=== PATIENT | male | born 1995 | race Caucasian/White ===

== ENCOUNTER 2022-07-08 15:31 | Inpatient (IN) | payer OTHER ==
[~2022-07-08 15:31] MED LIST: Iopamidol-370 76% 500 ML MDV (1 ML CHARGE) ONE
[2022-07-08 16:38] LABS: #Lymphocytes 1.6 thou/uL (1.20-3.40); #Monocytes 0.6 thou/uL (0.11-0.59); #Neutrophils 4.6 thou/uL (1.40-6.50); %Basophils 0.3 % (0.0-1.0); %Eosinophils 0.3 % (0.0-10.0); %Lymphocytes 23.5 % (21.0-51.0); %Monocytes 8.4 % (0.0-10.0); %Neutrophils 67.5 % (42.0-75.0); Hemoglobin 7.4 g/dL (14.0-18.0); Mean Corpuscular HGB CONC 29.3 g/dL (32.0-36.0); Mean Corpuscular Hemoglobin 17.4 pg (27.0-31.0); Mean Corpuscular Volume 59.3 fl (78.0-98.0); Mean Platelet Volume 6.9 fL (7.4-10.4); Platelet Count 363 10x3/uL (130-400); RBC Distribution Width 18.7 % (11.5-14.5); Red Blood Cell (RBC) Count 4.26 mill/uL (4.70-6.10); White Blood Cell (WBC) Count 6.8 10x3/uL (4.8-10.8)
[2022-07-08 16:51] LABS: Anisocytosis SLIGHT = 6-15 cells (100X) (0-5/hpf); Hypochromia SLIGHT = 6-15 cells (100X) (0-5/hpf); MDiff Complete? YES; Microcytosis SLIGHT = 6-15 cells (100X) (0-5/hpf); Ovalocytes SLIGHT = 2-5 cells (100X) (0-1/hpf); Platelet Morphology Comment Appears Adequate; Polychromasia SLIGHT = 2-3 cells (100X) (0-2/hpf); Reflex for Review?? YES; Small Platelets SLIGHT
[2022-07-08 17:08] LABS: ALT (SGPT) 23 U/L (8-55); AST (SGOT) 16 U/L (5-34); Albumin 4.4 g/dL (3.5-5.0); Alkaline Phosphatase 116 U/L (40-110); Anion Gap 13 mmol/L (10-20); BUN (Urea Nitrogen) 9 mg/dL (8.9-20.6); Bilirubin, Total 0.3 mg/dL (0.2-1.2); Calc. Creatinine Clearance 0 mL/min (70-130); Calcium 9.4 mg/dL (7.8-10.44); Carbon Dioxide 23 mmol/L (22-29); Chloride 105 mmol/L (98-107); Estimated GFR 96; Globulin 3.2 g/dL (2.4-3.5); Glucose 98 mg/dL (70-105); Potassium 3.7 mmol/L (3.5-5.1); Protein, Total 7.6 g/dL (6.0-8.3); Sodium 137 mmol/L (136-145)
[2022-07-08] MEDS ORDERED: Pantoprazole 40 MG VIAL ONE (17:44)
[2022-07-08] MEDS ORDERED: Ondansetron ODT 4 MG TAB PO PRN (18:26)
[2022-07-08] MEDS ORDERED: Ondansetron PF 4 MG/2 ML Vial IVP PRN (18:26)
[2022-07-08] MEDS ORDERED: Acetaminophen 325 MG TAB PO PRN (18:26)
[2022-07-08] MEDS ORDERED: Lorazepam 2 MG/ML VIAL IM PRN (19:16)
[2022-07-08] MEDS ORDERED: Lorazepam 1 MG TAB PO PRN (19:16)
[2022-07-08] MEDS ORDERED: Multivit, Therapeutic 1 TAB PO SCH (19:30)
[2022-07-08] MEDS ORDERED: Folic Acid 1 MG TAB PO SCH (19:30)
[2022-07-08] MEDS ORDERED: Electrolyte Replacement Protocol FS PRN (19:30)
[2022-07-08] MEDS ORDERED: Electrolyte Replacement Protocol 1 EACH FS SCH (19:30)
[2022-07-08] MEDS: Thiamine HCl 200 MG/2 ML VIAL SLOW IVP SCH (20:31)
[2022-07-08] MEDS: Folic Acid 1 MG TAB PO SCH (20:31)
[2022-07-08] MEDS: Lactated Ringer's 1,000 ML IV SCH (20:38)
[2022-07-08] MEDS: Prazosin HCl 1 MG CAP PO SCH (20:47)
[2022-07-08] MEDS ORDERED: ILOPERIDONE 6 MG PO SCH (21:00)
[2022-07-08] MEDS ORDERED: traZODone HCl 150 MG TAB PO SCH (21:00)
[2022-07-08 22:03] LABS: Magnesium 2.2 mg/dL (1.6-2.6); Phosphorus 3.5 mg/dL (2.3-4.7)
[2022-07-08 23:00] LABS: Amphetamine Not Detected (NotDetected); Barbiturates Screen Not Detected (NotDetected); Benzodiazepine Screen Detected (NotDetected); Cocaine Metabolite Screen Not Detected (NotDetected); Methadone Not Detected (NotDetected); Methamphetamine Not Detected (NotDetected); Opiate Screen Not Detected (NotDetected); Oxycodone Screen Not Detected (NotDetected); Phencyclidine (PCP) Not Detected (NotDetected); THC/Cannabinoid Screen Not Detected (NotDetected); Tricyclic Screen Not Detected (NotDetected)
[2022-07-08 23:09] VITALS: BMI 28.1
[2022-07-08] MEDS: Temazepam 15 MG CAP PO PRN (23:12)
[2022-07-09] MEDS: Lactated Ringer's 1,000 ML IV SCH ×3 (01:40→16:57)
[2022-07-09 06:06] LABS: HBSAg Index 0.24 S/CO (0-0.99); Hep B Surf Ag Non-Reactive S/CO (NonReactive); Hep C IgG Ab Non-Reactive S/CO (NonReactive); Hep C Index 0.11 S/CO (0-0.79)
[2022-07-09 06:07] LABS: Hep A IgM AB Non-Reactive S/CO (NonReactive); Hep A IgM S/CO 0.18 S/CO (0-0.79)
[2022-07-09 06:09] LABS: Hepatitis B Core IgM Abs Non-Reactive S/CO (NonReactive)
[2022-07-09 06:10] LABS: HBCM Index 0.08 S/CO (0-0.79); HIV (1/2) Antibody/Antigen Non-Reactive (NonReactive)
[2022-07-09 06:11] LABS: HIV 1/2 INDEX 0.12 S/CO (<1.00)
[2022-07-09 07:39] LABS: #Eosinphils 0.1 thou/uL (0.0-0.7); #Lymphocytes 1.5 thou/uL (1.20-3.40); #Monocytes 0.5 thou/uL (0.11-0.59); %Basophils 0.1 % (0.0-1.0); %Eosinophils 1.3 % (0.0-10.0); %Lymphocytes 29.5 % (21.0-51.0); %Monocytes 9.1 % (0.0-10.0); Hemoglobin 8.1 g/dL (14.0-18.0); Mean Corpuscular HGB CONC 29.1 g/dL (32.0-36.0); Mean Corpuscular Volume 61.9 fl (78.0-98.0); Mean Platelet Volume 6.8 fL (7.4-10.4); Platelet Count 338 10x3/uL (130-400); RBC Distribution Width 21.7 % (11.5-14.5); Red Blood Cell (RBC) Count 4.49 mill/uL (4.70-6.10)
[2022-07-09 08:01] LABS: ALT (SGPT) 26 U/L (8-55); AST (SGOT) 19 U/L (5-34); Albumin 3.9 g/dL (3.5-5.0); Alkaline Phosphatase 102 U/L (40-110); Anion Gap 13 mmol/L (10-20); BUN (Urea Nitrogen) 7 mg/dL (8.9-20.6); Bilirubin, Total 0.5 mg/dL (0.2-1.2); Calc. Creatinine Clearance 167 mL/min (70-130); Calcium 9.1 mg/dL (7.8-10.44); Carbon Dioxide 23 mmol/L (22-29); Chloride 107 mmol/L (98-107); Estimated GFR 114; Globulin 2.9 g/dL (2.4-3.5); Glucose 94 mg/dL (70-105); Protein, Total 6.8 g/dL (6.0-8.3); Sodium 139 mmol/L (136-145)
[2022-07-09 08:43] LABS: Hypochromia MODERATE=16-30 cells (100X) (0-5/hpf); MDiff Complete? YES; Microcytosis MARKED = >30 cells (100X) (0-5/hpf); Ovalocytes MODERATE= 6-15 cells (100X) (0-1/hpf); Platelet Morphology Comment Appears Adequate; Polychromasia SLIGHT = 2-3 cells (100X) (0-2/hpf); Tear Drops SLIGHT = 2-5 cells (100X) (0-1/hpf)
[2022-07-09] MEDS: Multivit, Therapeutic 1 TAB PO SCH (09:34)
[2022-07-09] MEDS: Pantoprazole 40 MG VIAL IVP SCH ×2 (09:34→20:53)
[2022-07-09] MEDS: Sertraline 100 MG TAB PO SCH (09:34)
[2022-07-09] MEDS: Folic Acid 1 MG TAB PO SCH (09:34)
[2022-07-09 11:04] LABS: Syphilis Antibody Nonreactive (Nonreactive)
[2022-07-09] MEDS ORDERED: Iron, Sodium Ferric Gluconate 125 MG in Sodium Chloride 0.9% 100 ML IVPB SCH (14:00)
[2022-07-09] MEDS ORDERED: Lorazepam 1 MG TAB PO PRN (19:16)
[2022-07-09] MEDS: Thiamine HCl 200 MG/2 ML VIAL SLOW IVP SCH (20:50)
[2022-07-09] MEDS: Prazosin HCl 1 MG CAP PO SCH (20:53)
[2022-07-09] MEDS ORDERED: traZODone HCl 150 MG TAB PO SCH (21:00)
[2022-07-10] MEDS: Temazepam 15 MG CAP PO PRN (00:15)
[2022-07-10] MEDS: Lactated Ringer's 1,000 ML IV SCH ×2 (00:51→06:14)
[2022-07-10 07:19] LABS: #Eosinphils 0.1 thou/uL (0.0-0.7); #Lymphocytes 1.7 thou/uL (1.20-3.40); #Monocytes 0.6 thou/uL (0.11-0.59); #Neutrophils 3.6 thou/uL (1.40-6.50); %Basophils 0.3 % (0.0-1.0); %Eosinophils 2.1 % (0.0-10.0); %Lymphocytes 28.5 % (21.0-51.0); %Monocytes 9.8 % (0.0-10.0); %Neutrophils 59.3 % (42.0-75.0); Hemoglobin 8.1 g/dL (14.0-18.0); Mean Corpuscular HGB CONC 29.3 g/dL (32.0-36.0); Mean Corpuscular Hemoglobin 18.1 pg (27.0-31.0); Mean Corpuscular Volume 61.7 fl (78.0-98.0); Mean Platelet Volume 6.7 fL (7.4-10.4); Platelet Count 328 10x3/uL (130-400); RBC Distribution Width 21.1 % (11.5-14.5); Red Blood Cell (RBC) Count 4.49 mill/uL (4.70-6.10)
[2022-07-10 07:37] LABS: ALT (SGPT) 34 U/L (8-55); AST (SGOT) 20 U/L (5-34); Albumin 3.9 g/dL (3.5-5.0); Alkaline Phosphatase 101 U/L (40-110); Anion Gap 12 mmol/L (10-20); BUN (Urea Nitrogen) 7 mg/dL (8.9-20.6); Bilirubin, Total 0.5 mg/dL (0.2-1.2); Calc. Creatinine Clearance 171 mL/min (70-130); Calcium 9.4 mg/dL (7.8-10.44); Carbon Dioxide 25 mmol/L (22-29); Chloride 106 mmol/L (98-107); Estimated GFR 117; Globulin 2.9 g/dL (2.4-3.5); Glucose 83 mg/dL (70-105); Protein, Total 6.8 g/dL (6.0-8.3); Sodium 139 mmol/L (136-145)
[2022-07-10] MEDS ORDERED: Lidocaine 1% PF 5 ML VIAL ONE (08:33)
[2022-07-10] MEDS ORDERED: PROPOFOL 200 MG/20 ML VIAL ONE (08:33)
[2022-07-10 09:23] LABS: Hypochromia MODERATE=16-30 cells (100X) (0-5/hpf); MDiff Complete? YES; Microcytosis MODERATE=15-30 cells (100X) (0-5/hpf); Ovalocytes SLIGHT = 2-5 cells (100X) (0-1/hpf); Platelet Morphology Comment Appears Adequate; Polychromasia SLIGHT = 2-3 cells (100X) (0-2/hpf)
[2022-07-10] MEDS: Folic Acid 1 MG TAB PO SCH (10:26)
[2022-07-10] MEDS: Multivit, Therapeutic 1 TAB PO SCH (10:26)
[2022-07-10] MEDS: Pantoprazole 40 MG VIAL IVP SCH (10:26)
[2022-07-10] MEDS: Sertraline 100 MG TAB PO SCH (10:26)
[2022-07-10 11:43] VITALS: BP 99/61; TEMP 98.1
[2022-07-10] MEDS ORDERED: Lorazepam 1 MG TAB PO PRN (19:16)
[2022-07-11] MEDS ORDERED: Lorazepam 0.5 MG TAB PO PRN (19:16)
[2022-07-11] MEDS ORDERED: Thiamine 100 MG TAB PO SCH (20:00)
== END 2022-07-10 13:52 | disposition home or self-care (01) | DRG 382 ==
LOC: ERS 15:31 → T4-A 17:42 → OBSVTOIN 07-10 13:34
PROVIDERS: ADMIT Emergency Medicine; ATTEND Emergency Medicine
PROC: 30233N1 Transfusion of Nonautologous Red Blood Cells into Peripheral Vein, Percutaneous Approach (ICD-10-PCS; principal; 2022-07-08)
PROC: 0DB98ZX Excision of Duodenum, Via Natural or Artificial Opening Endoscopic, Diagnostic (ICD-10-PCS; 2022-07-10)
DX: K22.11 Ulcer of esophagus with bleeding (principal); D50.9 Iron deficiency anemia, unspecified; R16.1 Splenomegaly, not elsewhere classified; K44.9 Diaphragmatic hernia without obstruction or gangrene; F41.9 Anxiety disorder, unspecified; F32.A Depression, unspecified; F90.9 Attention-deficit hyperactivity disorder, unspecified type; E78.5 Hyperlipidemia, unspecified; F10.10 Alcohol abuse, uncomplicated; F19.10 Other psychoactive substance abuse, uncomplicated; Z79.899 Other long term (current) drug therapy
CPT/HCPCS: 36415; 36430; 71045; 74177; 80053; 80074; 80306; 83735; 84100; 84484; 85025; 85046; 85060; 85730; 86780; 86850; 86900; 86901; 87389; 88305; 93005; 96374; 96375; 96376; C9113; G0378; J2704; J2916; J3411; J3490; J7120; P9016; Q9967

== ENCOUNTER 2023-03-13 15:00 | Emergency (ER) | payer OTHER ==
[2023-03-13 17:15] LABS: #Eosinphils 0.1 thou/uL (0.0-0.7); #Monocytes 0.6 thou/uL (0.11-0.59); #Neutrophils 8.1 thou/uL (1.40-6.50); %Basophils 0.2 % (0.0-1.0); %Eosinophils 0.8 % (0.0-10.0); %Lymphocytes 13.7 % (21.0-51.0); %Monocytes 5.6 % (0.0-10.0); %Neutrophils 79.5 % (42.0-75.0); Hematocrit 48.8 % (42.0-52.0); Hemoglobin 16.4 g/dL (14.0-18.0); Mean Corpuscular HGB CONC 33.6 g/dL (32.0-36.0); Mean Corpuscular Hemoglobin 28.7 pg (27.0-31.0); Mean Corpuscular Volume 85.5 fl (78.0-98.0); Mean Platelet Volume 10.4 fL (7.4-10.4); Platelet Count 282 10x3/uL (130-400); RBC Distribution Width 12.2 % (11.5-14.5); Red Blood Cell (RBC) Count 5.71 mill/uL (4.70-6.10); White Blood Cell (WBC) Count 10.2 10x3/uL (4.8-10.8)
[2023-03-13 17:35] LABS: ALT (SGPT) 107 U/L (8-55); AST (SGOT) 65 U/L (5-34); Albumin 4.6 g/dL (3.5-5.0); Alkaline Phosphatase 133 U/L (40-110); Anion Gap 13 mmol/L (10-20); BUN (Urea Nitrogen) 9 mg/dL (8.9-20.6); Bilirubin, Total 0.5 mg/dL (0.2-1.2); Calc. Creatinine Clearance 0 mL/min (70-130); Calcium 9.6 mg/dL (7.8-10.44); Carbon Dioxide 25 mmol/L (22-29); Chloride 101 mmol/L (98-107); Estimated GFR 106; Globulin 3.7 g/dL (2.4-3.5); Glucose 106 mg/dL (70-105); Potassium 3.8 mmol/L (3.5-5.1); Protein, Total 8.3 g/dL (6.0-8.3); Sodium 135 mmol/L (136-145)
[2023-03-13] MEDS ORDERED: Pantoprazole 40 MG VIAL ONE (17:38)
[2023-03-13] MEDS ORDERED: Ondansetron PF 4 MG/2 ML Vial ONE (17:38)
[2023-03-13] MEDS ORDERED: Lidocaine 2% Viscous Solution 10 ML, Aluminum & Magnesium Hydroxide 30 ML SSW SCH (17:45)
[2023-03-13 20:03] LABS: Lactic Acid 1.2 mmol/L (0.5-2.2)
== END 2023-03-13 20:04 | disposition home or self-care (01) ==
LOC: ERS 15:00
DX: K29.70 Gastritis, unspecified, without bleeding (principal); K21.9 Gastro-esophageal reflux disease without esophagitis; Z87.891 Personal history of nicotine dependence; Z79.899 Other long term (current) drug therapy
CPT/HCPCS: 80053; 83605; 83690; 85025; 96361; 96374; 96375; C9113; J2405